=== PATIENT | female | born 1980 | race Caucasian/White ===

== ENCOUNTER 2021-04-17 18:01 | Inpatient (IN) | payer OTHER ==
[~2021-04-17] VITALS: Ht 152.4 cm; Wt 76.7 kg
[2021-04-17 18:05] VITALS: BP 108/68
[2021-04-17 18:22] LABS: URINE BILIRUBIN NEGATIVE (Negative); URINE BLOOD 1+ (Negative); URINE CLARITY CLEAR; URINE COLOR YELLOW; URINE GLUCOSE-RANDOM* NEGATIVE (Negative); URINE KETONES 3+ (Negative); URINE LEUKOCYTES-REFLEX NEGATIVE (Negative); URINE NITRITE-REFLEX NEGATIVE (Negative); URINE PROTEIN (DIPSTICK) 2+ (Negative); URINE SPECIFIC GRAVITY >= 1.030 (1.005-1.035)
[2021-04-17 18:42] LABS: MUCUS >6 Heavy strn/LPF (None Seen); SQUAMOUS >10 Many /LPF (0-3)
[2021-04-17 18:42] LABS: ABSOLUTE NEUTROPHILS 2.6 thou/uL (1.4-8.2); BASOPHILS 0.3 % (0.0-2.0); HEMATOCRIT 38.3 % (37.0-47.0); HEMOGLOBIN 12.1 gm/dL (12.0-15.0); LYMPHOCYTES 19.4 % (24.0-44.0); MCH 23.4 pg (26.0-34.0); MCHC 31.6 g/dL (28.0-37.0); MCV 74.1 fL (80.0-100.0); MONOCYTES 7.9 % (1.0-8.0); PLATELET COUNT 110 thou/uL (150-400); POLYS 72.4 % (36.0-66.0); RBC 5.16 mil/uL (4.20-5.00); RDW 16.3 % (10.5-14.5); WBC 3.5 thou/uL (4.0-11.0)
[2021-04-17] MEDS ORDERED: LEVOTHYROXINE75 MC1 PO (18:42)
[2021-04-17 18:44] LABS: BACTERIA-REFLEX None Seen /HPF (None Seen); CASTS None Seen /LPF (None Seen); URINE RBC 1-2 Rare /HPF (NONE SEEN); URINE WBC-REFLEX 0-5 Rare /HPF (0-5)
[2021-04-17 18:45] LABS: CRYSTALS None Seen /LPF (None Seen)
[2021-04-17 18:59] LABS: CALCIUM 7.9 mg/dL (8.5-10.1); CREATININE 0.6 mg/dL (0.6-1.0); POTASSIUM 3.7 mmol/L (3.5-5.1)
--- NOTE | 2021-04-17 19:07 | NUR ---
REPORT GIVEN TO GIOVANI MAE AT THIS TIME
[2021-04-18 05:20] LABS: HEMATOCRIT 36.3 % (37.0-47.0); HEMOGLOBIN 11.7 gm/dL (12.0-15.0); MCH 23.7 pg (26.0-34.0); MCHC 32.3 g/dL (28.0-37.0); MCV 73.3 fL (80.0-100.0); RBC 4.95 mil/uL (4.20-5.00); RDW 16.5 % (10.5-14.5); WBC 3.8 thou/uL (4.0-11.0)
[2021-04-18 05:27] LABS: CALCIUM 7.5 mg/dL (8.5-10.1); CREATININE 0.6 mg/dL (0.6-1.0); POTASSIUM 3.9 mmol/L (3.5-5.1); TOTAL BILIRUBIN 0.2 mg/dL (0.2-1.0); TOTAL PROTEIN 7.5 g/dL (6.4-8.2)
--- NOTE | 2021-04-18 07:11 | NUR ---
TOOK OVER CARE FROM GIOVANI MAE AT THIS TIME
--- NOTE | 2021-04-18 11:32 | EKG ---
[address] [address] [facility] [place] [address] ELECTROCARDIOGRAM REPORT Name: LISSY RIVERO Room #: 170-11 ADM IN M.R.#: [id number] Admission: 04/17/21 Attend Phys: Hugo Ratliff MD Discharge: Date of : 80 Report #: [id number] [facility] ED Test Date: 2021-04-17 Test Time: 18:50:53 Pat Name: LISSY RIVERO Department: Room: 170 Gender: F [employer]: [place] : 1980 Requested By: Mary Schmitz Order Number: [id number] : Giorgio Marinelli Measurements Intervals [place] Rate: 96 P: 19 AL: 158 QRS: 47 QRSD: 64 T: 45 QT: 381 QTc: 482 Interpretive Statements Sinus rhythm Low voltage, extremity and precordial leads No previous ECG available for comparison Electronically Signed On 04-18-2021 11:32:04 CDT by Giorgio Marinelli [email or web address] <ELECTRONICALLY SIGNED> By: Giorgio Marinelli MD, [facility] 04/18/21 1132 1850 49 Giorgio Marinelli MD, FACC /EPI
[2021-04-18 15:38] VITALS: BP 108/71
[2021-04-18 15:48] VITALS: BP 108/71
[2021-04-18 16:56] VITALS: BP 101/69
--- NOTE | 2021-04-18 18:01 | NUR ---
Patient admit to
--- NOTE | 2021-04-18 18:02 | NUR ---
PATIENT ADMIT TO UNIT FROM ER AT 1630. A/O X4. NO PAIN. VSS. ON RA. UP AD AMANUEL. WILL KEEP MONITOR.
[2021-04-18 19:03] VITALS: BP 129/94
[2021-04-19 04:28] VITALS: BP 108/71
[2021-04-19 05:32] LABS: HEMATOCRIT 35.8 % (37.0-47.0); HEMOGLOBIN 11.6 gm/dL (12.0-15.0); MCHC 32.4 g/dL (28.0-37.0); MCV 73.9 fL (80.0-100.0); RBC 4.84 mil/uL (4.20-5.00); WBC 10.4 thou/uL (4.0-11.0)
[2021-04-19 05:41] LABS: CALCIUM 7.9 mg/dL (8.5-10.1); CREATININE 0.6 mg/dL (0.6-1.0)
--- NOTE | 2021-04-19 05:42 | NUR ---
PT C/O HEADACHE LAST NIGHT. GIVEN ICE PACK PER REQUEST. THIS AM C/O HEADACHE, DULL, 09/30. REQUESTED AND WAS GIVEN TYLENOL. NO OTHER COMPLAINTS VOICED.
[2021-04-19 07:49] VITALS: BP 94/57
--- NOTE | 2021-04-19 15:08 | NUR ---
ASSUMED PATIENT CARE AT 0700. A/ X4. AFEBRILE. VVS. UP AD AMANUEL. POOR APPATITE. WILL KEEP MONITOR. SLOWLY TOWARDS POC GOALS.
[2021-04-19 15:33] VITALS: BP 103/69
[2021-04-19 20:10] VITALS: BP 114/70
[2021-04-20 00:07] LABS: ABSOLUTE NEUTROPHILS 8.6 thou/uL (1.4-8.2); BASOPHILS 0.1 % (0.0-2.0); HEMATOCRIT 36.5 % (37.0-47.0); HEMOGLOBIN 11.4 gm/dL (12.0-15.0); LYMPHOCYTES 9.1 % (24.0-44.0); MCHC 31.3 g/dL (28.0-37.0); MCV 73.7 fL (80.0-100.0); MONOCYTES 6.5 % (1.0-8.0); PLATELET COUNT 207 thou/uL (150-400); POLYS 84.3 % (36.0-66.0); RBC 4.95 mil/uL (4.20-5.00); RDW 16.4 % (10.5-14.5); WBC 10.2 thou/uL (4.0-11.0)
[2021-04-20 01:26] LABS: ANISOCYTOSIS 1+; HYPOCHROMASIA 1+; MICROCYTES 1+
[2021-04-20 03:22] VITALS: BP 96/57
--- NOTE | 2021-04-20 04:33 | NUR ---
PROGRESS PT PROGRESSING LUNGS CLEAR BUT DIMINISHED, ON ROOM AIR SATS IN MID 90'S, DENIES SOB. UP AD AMANUEL HAS A OCCASIONAL NON PRODUCTIVE COUGH. DENIES PAIN VSS PLAN TO DC WHEN MEDICALLY STABLE.
[2021-04-20 07:08] VITALS: BP 108/63
[2021-04-20 08:43] LABS: HEMOGLOBIN 11.2 gm/dL (12.0-15.0); MCH 23.2 pg (26.0-34.0); MCHC 31.9 g/dL (28.0-37.0); MCV 72.9 fL (80.0-100.0); RBC 4.8 mil/uL (4.20-5.00); RDW 16.4 % (10.5-14.5)
[2021-04-20 09:06] LABS: CALCIUM 7.6 mg/dL (8.5-10.1); CREATININE 0.5 mg/dL (0.6-1.0); POTASSIUM 3.2 mmol/L (3.5-5.1)
[2021-04-20] MEDS ORDERED: VENTOLIN HFA INH8 GM INH (14:58)
[2021-04-20] MEDS ORDERED: MUCINEX600 MG PO (14:58)
[2021-04-20] MEDS ORDERED: CEFDINIR300 MG PO (15:00)
[2021-04-20] MEDS ORDERED: PREDNISONE 10 M10 M1 PO (15:13)
[2021-04-20 15:22] VITALS: BP 108/63
== END 2021-04-20 16:30 | disposition home or self-care (01) | DRG 177 ==
LOC: ER 18:01 → 3W 22:33 → EROBS 22:33 → 3W 04-18 15:48
PROVIDERS: Emergency Medicine; Nurse Practitioner Family; ADMIT Hospitalist; ATTEND Hospitalist
DX: U07.1 COVID-19 (principal); J12.82 Pneumonia due to coronavirus disease 2019; E43 Unspecified severe protein-calorie malnutrition; E03.9 Hypothyroidism, unspecified; D69.6 Thrombocytopenia, unspecified; Z88.0 Allergy status to penicillin; Z79.899 Other long term (current) drug therapy
CPT/HCPCS: 10080

== ENCOUNTER 2021-04-22 12:32 | Inpatient (IN) | payer OTHER ==
[~2021-04-22] VITALS: Ht 152.4 cm; Wt 70.7 kg
[~2021-04-22 12:32] MED LIST: CEFDINIR300 MG PO; LEVOTHYROXINE75 MC1 PO; MUCINEX600 MG PO; PREDNISONE 10 M10 M1 PO; VENTOLIN HFA INH8 GM INH
[2021-04-22 12:38] VITALS: BP 91/62
--- NOTE | 2021-04-22 12:41 | NUR ---
MICHELLE [phone]
[2021-04-22 13:38] LABS: HEMATOCRIT 39.6 % (37.0-47.0); HEMOGLOBIN 12.5 gm/dL (12.0-15.0); MCH 23.3 pg (26.0-34.0); MCHC 31.7 g/dL (28.0-37.0); MCV 73.3 fL (80.0-100.0); RBC 5.39 mil/uL (4.20-5.00); RDW 16.1 % (10.5-14.5)
[2021-04-22 13:46] LABS: CALCIUM 8.3 mg/dL (8.5-10.1); CREATININE 0.6 mg/dL (0.6-1.0); POTASSIUM 3.4 mmol/L (3.5-5.1)
[2021-04-22 13:52] LABS: TOTAL BILIRUBIN 0.3 mg/dL (0.2-1.0); TOTAL PROTEIN 7.5 g/dL (6.4-8.2)
--- NOTE | 2021-04-22 14:21 | EKG ---
[address] [address] ELECTROCARDIOGRAM REPORT Name: LISSY RIVERO Room #: 353-P [facility]#: [id number] Admission: 04/22/21 Attend Phys: Salvador Renee MD Discharge: 04/26/21 Date of : 80 Report #: [id number] [facility] ED Test Date: 2021-04-22 Test Time: 12:38:19 Pat Name: LISSY RIVERO Department: Room: Gender: F Household Coordinator: DANNY : 1990-03-22 Requested By: Ronak Grullon Order Number: [id number] MD: Giorgio Marinelli Measurements Intervals [place] Rate: 84 P: 44 ID: [id number] QRS: 23 QRSD: 55 T: QT: 480 QTc: 568 Interpretive Statements NSR No previous ECG available for comparison Electronically Signed On 04-22-2021 14:21:29 CDT by Giorgio Marinelli [email or web address] <ELECTRONICALLY SIGNED> By: Giorgio Marinelli MD, [facility] 04/22/21 1421 1238 1238 Giorgio Marinelli MD, FACC /EPI
[2021-04-22] MEDS ORDERED: LEVO-T75 MCG PO (15:21)
[2021-04-22] MEDS ORDERED: PROAIR HFA8.5 GM INH (15:22)
[2021-04-22] MEDS ORDERED: RAYOS5 MG PO (15:22)
[2021-04-22] MEDS ORDERED: CEFDINIR300 MG PO (15:22)
[2021-04-22] MEDS ORDERED: MUCINEX1200 MG PO (15:22)
[2021-04-22 15:55] VITALS: BP 115/60
[2021-04-22 15:59] VITALS: BP 115/60
[2021-04-22 16:35] VITALS: BP 113/65
[2021-04-22 17:30] VITALS: BP 118/74
--- NOTE | 2021-04-22 18:19 | NUR ---
PT ADMITTED FROM ER FOR SOB AND COVID PNEUMONIA AT 1730PM, PT IS A&OX4, PT'S VS ARE STABLE , PT IS ON O2 2L/MIN/NC, BUT PT HAS SOB WITH ACTIVITIES, PT HAS STARTED IV FLIUD AND IV ABX, PT IS EATING DINNER NOW. ADMITTED ASSESSMENT HAS DONE, MARLEE WILL HAS CONSULT.
[2021-04-22 19:06] VITALS: BP 103/71
--- NOTE | 2021-04-22 22:48 | NUR ---
PT RESTING IN BED. TEARFUL, EXPRESSING CONCERN THAT SHE OMARI ALOT. PT ON ROOM AIR, 98%. ENCOURAGED TO WEAR O2 NC FOR EXERTION. BSC. IVF INTACT. LUNGS DIMINIHSED. PT HAS NOT HAD BM FOR SAMPLE. PT CALLS FOR ASSISTANCE.
[2021-04-23 04:00] VITALS: BP 106/66
[2021-04-23 07:15] VITALS: BP 103/71
[2021-04-23 11:15] VITALS: BP 106/66
--- NOTE | 2021-04-23 15:15 | NUR ---
PT IS ALERT AND ORIENTED X4. SR ON THE MONITOR AND CURRENTLY ROOM AIR. PT DOES NEED 2L NC WHEN GETTING OUT OF BED AND O2SAT DECREASES TO 80s. NON-PRODUCTIVE COUGH. COUGH IS WORSE WHEN PT IS MOVING. PT IS DROWSY. DENIES PAIN OR DISCOMFORT AT THIS TIME. WILL CONTINUE TO MONITOR.
[2021-04-23 15:17] VITALS: BP 104/64
--- NOTE | 2021-04-23 16:06 | NUR ---
INITIAL ASSESSMENT: ANDRADE reviewed chart and spoke with nursing and attending physician. Pt was admitted from home due to COVID pneumonia. Pt placed in Enhanced Isolation. Pt is afebrile and on room air. Pt is on IV abx and IV steroids. ID consulted. Pt may be ready for discharge home over the weekend. Rest/exercise oximetry completed today. Pt does not require home O2. Repeat rest/exercise oximetry will be completed prior to discharge. ANDRADE spoke with pt via phone. Introduced role of SW. Pt is alert/orientated x 4. Pt reports she lives at home with family. Prior to admission, pt was independent with ADLs. No use of DME. Pt goes to the [facility] for primary care. No hx of services or post-acute placement. Pt is employed with [employer]. ANDRADE discussed possible need for home O2. ANDRADE confirmed home address and phone number. ANDRADE discussed options for DME providers. No preference voiced. ANDRADE faxed home O2 referral to [facility] and notified liaison. If pt needs home O2, rest/exercise oximetry and script for O2 will need to be faxed to [facility] if pt needs home O2. Pt will have transportation home. ANDRADE is following and is available to assist as needed with discharge planning. [facility] [place]--
[2021-04-23 20:13] VITALS: BP 100/63
--- NOTE | 2021-04-23 22:22 | NUR ---
very small bm tonight, loose mised with urine. unab;e to collect to send for a cdiff
[2021-04-24 03:43] VITALS: BP 92/61
--- NOTE | 2021-04-24 04:52 | NUR ---
RESTING QUIETLY TONIGHT. COVID SWAB COLLECTED THIS SHIFT CAME BACK POSITIVE. USING THE BEDSIDE COMMODE MOSTLY. GAVE HER A CUP TO COLLECT THE URINE SAMPLE. AWAITING SAMPLE. DENIES PAIN. RESTING QUIETLY TONIGHT.
[2021-04-24 06:01] LABS: ABSOLUTE NEUTROPHILS 9.7 thou/uL (1.4-8.2); BASOPHILS 0.1 % (0.0-2.0); HEMATOCRIT 36.6 % (37.0-47.0); HEMOGLOBIN 11.4 gm/dL (12.0-15.0); LYMPHOCYTES 7.4 % (24.0-44.0); MCH 22.8 pg (26.0-34.0); MCHC 31.1 g/dL (28.0-37.0); MCV 73.4 fL (80.0-100.0); MONOCYTES 6.3 % (1.0-8.0); POLYS 86.2 % (36.0-66.0); RBC 4.98 mil/uL (4.20-5.00); RDW 16.3 % (10.5-14.5); WBC 11.2 thou/uL (4.0-11.0)
[2021-04-24 06:17] LABS: PLATELET COUNT 389 thou/uL (150-400)
[2021-04-24 06:18] LABS: INR 1.07; PROTIME 11.6 Seconds (10.5-12.1)
[2021-04-24 07:00] LABS: ALBUMIN 2.9 g/dL (3.4-5.0); ANION GAP 9 mmol/L (7-16); BUN 11 mg/dL (7-18); CALCIUM 8.1 mg/dL (8.5-10.1); CHLORIDE 108 mmol/L (98-107); CO2 24 mmol/L (21-32); CREATININE 0.6 mg/dL (0.6-1.0); DIRECT BILIRUBIN < 0.1 mg/dL (<0.1-0.2); GLUCOSE 120 mg/dL (74-106); PHOSPHORUS 3.6 mg/dL (2.5-4.9); POTASSIUM 4.2 mmol/L (3.5-5.1); SGOT 38 U/L (15-37); SGPT 140 U/L (30-65); SODIUM 141 mmol/L (136-145); TOTAL BILIRUBIN 0.2 mg/dL (0.2-1.0); TOTAL PROTEIN 6.8 g/dL (6.4-8.2)
[2021-04-24 07:10] LABS: ANISOCYTOSIS 1+; HYPOCHROMASIA 1+; MACROCYTES FEW
[2021-04-24 07:11] LABS: LARGE PLATELETS FEW
[2021-04-24 07:35] VITALS: BP 108/63
[2021-04-24 11:23] VITALS: BP 111/68
[2021-04-24 15:34] VITALS: BP 102/64
--- NOTE | 2021-04-24 15:36 | NUR ---
PT IS ALERT AND ORIENTED X4. TOLERATING ROOM AIR AND OXYGEN IS >90% WHEN UP MOVING AROUND ROOM. SR ON THE MONITOR. PT STATES SHE IS FEELING BETTER TODAY. NO OTHER COMPLAINTS OF PAIN OR DISCOMFORT AT THIS TIME. WILL CONTINUE TO MONITOR.
[2021-04-24 20:29] VITALS: BP 99/64
--- NOTE | 2021-04-25 03:10 | NUR ---
continues on room air. she has been talking on the phone with her family tonight. denies pain. no concerns voiced.
[2021-04-25 03:44] VITALS: BP 98/60
[2021-04-25 04:56] LABS: ALBUMIN 3.2 g/dL (3.4-5.0); ANION GAP 9 mmol/L (7-16); BUN 16 mg/dL (7-18); CALCIUM 8.4 mg/dL (8.5-10.1); CHLORIDE 105 mmol/L (98-107); CO2 26 mmol/L (21-32); CREATININE 0.5 mg/dL (0.6-1.0); DIRECT BILIRUBIN < 0.1 mg/dL (<0.1-0.2); GLUCOSE 109 mg/dL (74-106); PHOSPHORUS 3.4 mg/dL (2.5-4.9); POTASSIUM 4.3 mmol/L (3.5-5.1); SGOT 19 U/L (15-37); SGPT 116 U/L (30-65); SODIUM 140 mmol/L (136-145); TOTAL BILIRUBIN 0.3 mg/dL (0.2-1.0); TOTAL PROTEIN 7.2 g/dL (6.4-8.2)
[2021-04-25 07:20] VITALS: BP 94/58
[2021-04-25 11:16] VITALS: BP 91/55
--- NOTE | 2021-04-25 14:40 | NUR ---
PT IS ALERT AND ORIENTED X4, RA, AND SR ON THE MONITOR. PT STATED SHE IS FEELING MUCH BETTER TODAY AND NOT FEELING TIRED LIKE SHE WAS WHEN SHE WAS ADMITTED. PT IS UP AD AMANUEL IN ROOM. NO COMPLAINTS OF PAIN OR DISCOMFORT AT THIS TIME. WILL CONTINUE TO MONITOR.
[2021-04-25 15:27] VITALS: BP 89/54
[2021-04-25 19:37] VITALS: BP 110/63
[2021-04-26 02:05] LABS: HIV ANTIBODY Non Reactive (Non Reactive)
[2021-04-26 03:45] LABS: ABSOLUTE NEUTROPHILS 8.6 thou/uL (1.4-8.2); BASOPHILS 0.1 % (0.0-2.0); HEMATOCRIT 38.2 % (37.0-47.0); LYMPHOCYTES 10.4 % (24.0-44.0); MCH 23.2 pg (26.0-34.0); MCHC 31.4 g/dL (28.0-37.0); MCV 73.6 fL (80.0-100.0); MONOCYTES 7.3 % (1.0-8.0); PLATELET COUNT 428 thou/uL (150-400); POLYS 82.2 % (36.0-66.0); RBC 5.19 mil/uL (4.20-5.00); RDW 16.3 % (10.5-14.5); WBC 10.5 thou/uL (4.0-11.0)
[2021-04-26 04:08] LABS: ALBUMIN 3.1 g/dL (3.4-5.0); ANION GAP 7 mmol/L (7-16); BUN 14 mg/dL (7-18); CALCIUM 8.3 mg/dL (8.5-10.1); CHLORIDE 104 mmol/L (98-107); CO2 28 mmol/L (21-32); CREATININE 0.6 mg/dL (0.6-1.0); DIRECT BILIRUBIN < 0.1 mg/dL (<0.1-0.2); GLUCOSE 115 mg/dL (74-106); PHOSPHORUS 4.2 mg/dL (2.5-4.9); POTASSIUM 4.6 mmol/L (3.5-5.1); SGOT 22 U/L (15-37); SGPT 113 U/L (30-65); SODIUM 139 mmol/L (136-145); TOTAL BILIRUBIN 0.3 mg/dL (0.2-1.0); TOTAL PROTEIN 6.6 g/dL (6.4-8.2)
[2021-04-26 04:47] VITALS: BP 112/68
--- NOTE | 2021-04-26 06:28 | NUR ---
Pt. stated she slept well during the night. Tolerating room air well and denies being short of breath. Cont. on enhanced precaution , afebrile. Up ad natacha in room with steady gait. Making some progress towards care plan goals.
[2021-04-26 07:12] VITALS: BP 87/51
[2021-04-26 09:30] VITALS: BP 112/62
[2021-04-26] MEDS ORDERED: CEFDINIR300 MG PO (11:32)
[2021-04-26] MEDS ORDERED: VITAMIN C1000 MG PO (11:32)
[2021-04-26] MEDS ORDERED: VITAMIN D325 MC2 PO (11:32)
[2021-04-26] MEDS ORDERED: PROTONIX 20 MG20 M1 PO (11:32)
[2021-04-26] MEDS ORDERED: ZINC SULFATE50 MG PO (11:32)
[2021-04-26] MEDS ORDERED: PREDNISONE 20 M20 MG PO (11:32)
[2021-04-26 11:43] VITALS: BP 93/59
[2021-04-26 11:56] VITALS: BP 93/59
--- NOTE | 2021-04-26 13:25 | NUR ---
PT IS ALERT AND ORIENTED X4. SR ON THE MONITOR AND RA. PT STATES SHE IS FEELING MUCH BETTER. WENT OVER DISCHARGE INFORMATION WITH PT. DISCONTINUED IV AT THIE TIME. PT VERBALIZED UNDERSTANDING OF DISCHARGE INSTRUCTIONS AND QUARANTINE INSTRUCTIONS. WAITING FOR PT RIDE TO ARRIVE AT THIS TIME.
--- NOTE | 2021-04-26 14:56 | NUR ---
PT LEFT VIA WHEELCHAIR TO EXIT WITH FAMILY MEMBER DRIVING. PT TOOK BELONGINGS WITH HER.
--- NOTE | 2021-04-26 15:22 | NUR ---
DISCHARGE NOTE: SW reviewed chart and spoke with nursing and attending physician. Pt remains in Enhanced Isolation due to COVID. Pt is afebrile and on room air. Pt is medically stable for discharge home today. No home O2 needed. SW updated [facility] liaison, who will machine operator hop picker portable O2 tank. Pt's family provided transportation home. No additional SW needs identified at this time, but is available to assist should needs arise.
== END 2021-04-26 14:47 | disposition home or self-care (01) | DRG 177 ==
LOC: EDBD 12:32 → ER 12:32 → 3W 15:46 → EROBS 15:46 → 3W 17:01
PROVIDERS: Physician Assistant; Specialist; ADMIT Hospitalist; ATTEND Hospitalist
PROC: XW033E5 Introduction of Remdesivir Anti-infective into Peripheral Vein, Percutaneous Approach, New Technology Group 5 (ICD-10-PCS; principal; 2021-04-23)
DX: U07.1 COVID-19 (principal); J12.82 Pneumonia due to coronavirus disease 2019; J96.01 Acute respiratory failure with hypoxia; Z88.0 Allergy status to penicillin; Z79.899 Other long term (current) drug therapy; E03.9 Hypothyroidism, unspecified; E86.0 Dehydration; R74.01 Elevation of levels of liver transaminase levels; I95.9 Hypotension, unspecified; E87.6 Hypokalemia; E66.9 Obesity, unspecified; Z68.30 Body mass index [BMI] 30.0-30.9, adult
CPT/HCPCS: 10879